=== PATIENT | female | born 1950 | race Native Hawaiian/Other Pacific Islander ===

== ENCOUNTER 2017-06-01 14:45 | Outpatient (CLI) | payer BC, OTHER ==
[2017-06-01 16:21] LABS: PLATELET COUNT 234 K/uL (152-353)
[2017-06-01 16:33] LABS: POTASSIUM 3.7 mmol/L (3.6-5.2); SODIUM 141 mmol/L (136-145)
== END 2017-06-01 19:19 | disposition home or self-care (01) ==
LOC: RAD 14:45
PROVIDERS: Podiatrist
DX: Z01.810 Encounter for preprocedural cardiovascular examination (principal); Z01.811 Encounter for preprocedural respiratory examination; Z01.812 Encounter for preprocedural laboratory examination
CPT/HCPCS: 36415; 80053; 85027; 93005